=== PATIENT | female | born 1955 | race Caucasian/White ===

== ENCOUNTER 2023-05-05 15:35 | Inpatient (IN) | payer MEDICARE ==
[2023-05-05 18:09] VITALS: BMI 33.6
[2023-05-05 18:23] LABS: #Basophils 0.1 thou/uL (0.0-0.2); #Eosinphils 0.4 thou/uL (0.0-0.7); #Monocytes 0.7 thou/uL (0.11-0.59); #Neutrophils 5.9 thou/uL (1.40-6.50); %Basophils 0.6 % (0.0-1.0); %Eosinophils 4.3 % (0.0-10.0); %Lymphocytes 26.6 % (21.0-51.0); %Monocytes 6.9 % (0.0-10.0); %Neutrophils 61.3 % (42.0-75.0); Hematocrit 31.5 % (36.0-47.0); Hemoglobin 10.1 g/dL (12.0-16.0); Mean Corpuscular HGB CONC 32.1 g/dL (32.0-36.0); Mean Corpuscular Hemoglobin 29.9 pg (27.0-31.0); Mean Corpuscular Volume 93.2 fl (78.0-98.0); Platelet Count 223 10x3/uL (130-400); RBC Distribution Width 13.8 % (11.5-14.5); Red Blood Cell (RBC) Count 3.38 mill/uL (4.20-5.40); White Blood Cell (WBC) Count 9.7 10x3/uL (4.8-10.8)
[2023-05-05] MEDS ORDERED: Milk Of Magnesia 30 ML UDCUP PO PRN (18:31)
[2023-05-05] MEDS ORDERED: Bisacodyl 10 MG SUPP PR PRN (18:31)
[2023-05-05] MEDS ORDERED: Promethazine HCl 12.5 MG in Sodium Chloride 0.9% 50 ML IVPB PRN (18:33)
[2023-05-05] MEDS ORDERED: Ondansetron PF 4 MG/2 ML Vial IVP PRN ×2 (18:33→18:55)
[2023-05-05] MEDS ORDERED: diphenhydrAMINE 50 MG/ML VIAL IVP PRN (18:35)
[2023-05-05] MEDS ORDERED: diphenhydrAMINE 25 MG CAP PO PRN (18:35)
[2023-05-05] MEDS ORDERED: Zolpidem Tartrate 5 MG TAB PO PRN ×2 (18:36→18:56)
[2023-05-05] MEDS ORDERED: Benzocaine/Menthol 1 LOZ LOZ PO PRN (18:36)
[2023-05-05] MEDS ORDERED: Acetaminophen 650 MG Suppository PR PRN (18:42)
[2023-05-05 18:49] LABS: Bilirubin, Total 1.4 mg/dL (0.2-1.2); Troponin I 0.098 ng/mL (< 0.028)
[2023-05-05 18:52] LABS: ALT (SGPT) 10 U/L (8-55); AST (SGOT) 23 U/L (5-34); Albumin 3.5 g/dL (3.4-4.8); Alkaline Phosphatase 79 U/L (40-110); Anion Gap 12 mmol/L (10-20); BUN (Urea Nitrogen) 21 mg/dL (9.8-20.1); Calc. Creatinine Clearance 63 mL/min (70-130); Calcium 8.4 mg/dL (7.8-10.44); Carbon Dioxide 25 mmol/L (23-31); Chloride 104 mmol/L (98-107); Estimated GFR 50; Globulin 2.2 g/dL (2.4-3.5); Glucose 111 mg/dL (80-115); Potassium 3.9 mmol/L (3.5-5.1); Protein, Total 5.7 g/dL (5.8-8.1); Sodium 137 mmol/L (136-145)
[2023-05-05] MEDS ORDERED: Docusate 100 MG CAP PO PRN (18:55)
[2023-05-05] MEDS ORDERED: Nitroglycerin 0.4 MG TAB (25 Tab Bottle) SL PRN (18:58)
[2023-05-05] MEDS: HYDROcodone/Acetaminophen 10/325 mg Tablet PO PRN (20:33)
[2023-05-05] MEDS: Famotidine 20 MG TAB PO SCH (20:33)
[2023-05-05] MEDS: Ferrous Sulfate 325 MG TAB PO SCH (20:33)
[2023-05-05] MEDS ORDERED: Ascorbic Acid 500 mg Chewable Tablet PO SCH (21:00)
[2023-05-05] MEDS ORDERED: Docusate 100 MG CAP PO SCH (21:00)
[2023-05-05] MEDS ORDERED: Famotidine/PF 20 mg/2ml Vial SLOW IVP SCH (21:00)
[2023-05-05] MEDS ORDERED: Metamucil PACK PO SCH (21:00)
[2023-05-05] MEDS ORDERED: Ferrous Sulfate 325 MG TAB PO SCH (21:00)
[2023-05-05] MEDS ORDERED: Famotidine 20 MG TAB PO SCH (21:00)
[2023-05-06 02:36] LABS: #Basophils 0.1 thou/uL (0.0-0.2); #Eosinphils 0.5 thou/uL (0.0-0.7); #Monocytes 0.6 thou/uL (0.11-0.59); #Neutrophils 4.9 thou/uL (1.40-6.50); %Basophils 0.7 % (0.0-1.0); %Eosinophils 6.1 % (0.0-10.0); %Lymphocytes 27.5 % (21.0-51.0); %Monocytes 7.4 % (0.0-10.0); %Neutrophils 57.9 % (42.0-75.0); Hemoglobin 9.7 g/dL (12.0-16.0); Mean Corpuscular HGB CONC 31.3 g/dL (32.0-36.0); Mean Corpuscular Hemoglobin 29.7 pg (27.0-31.0); Mean Corpuscular Volume 94.8 fl (78.0-98.0); Mean Platelet Volume 9.8 fL (7.4-10.4); Platelet Count 219 10x3/uL (130-400); RBC Distribution Width 13.7 % (11.5-14.5); Red Blood Cell (RBC) Count 3.27 mill/uL (4.20-5.40); White Blood Cell (WBC) Count 8.5 10x3/uL (4.8-10.8)
[2023-05-06 03:03] LABS: Troponin I 0.042 ng/mL (< 0.028)
[2023-05-06] MEDS: HYDROcodone/Acetaminophen 10/325 mg Tablet PO PRN ×4 (03:17→21:46)
[2023-05-06 03:19] LABS: ALT (SGPT) 8 U/L (8-55); AST (SGOT) 22 U/L (5-34); Albumin 3.4 g/dL (3.4-4.8); Alkaline Phosphatase 79 U/L (40-110); Anion Gap 11 mmol/L (10-20); BUN (Urea Nitrogen) 20 mg/dL (9.8-20.1); Bilirubin, Total 0.3 mg/dL (0.2-1.2); Calc. Creatinine Clearance 70 mL/min (70-130); Calcium 8.7 mg/dL (7.8-10.44); Carbon Dioxide 28 mmol/L (23-31); Chloride 104 mmol/L (98-107); Estimated GFR 57; Globulin 2.2 g/dL (2.4-3.5); Glucose 114 mg/dL (80-115); Protein, Total 5.6 g/dL (5.8-8.1); Sodium 139 mmol/L (136-145)
[2023-05-06 08:28] LABS: Troponin I 0.041 ng/mL (< 0.028)
[2023-05-06] MEDS ORDERED: ADENOSINE 60 MG/20 ML SDV ONE (08:36)
[2023-05-06] MEDS ORDERED: Multivit, Therapeutic 1 TAB PO SCH (09:00)
[2023-05-06] MEDS ORDERED: Folic Acid 1 MG TAB PO SCH (09:00)
[2023-05-06] MEDS: Ferrous Sulfate 325 MG TAB PO SCH ×2 (12:50→21:47)
[2023-05-06] MEDS: Aspirin 81 mg Enteric Coated Tablet PO SCH (12:50)
[2023-05-06] MEDS: Folic Acid 1 MG TAB PO SCH (12:50)
[2023-05-06] MEDS: Multivit, Therapeutic 1 TAB PO SCH (12:50)
[2023-05-06] MEDS: Famotidine 20 MG TAB PO SCH ×2 (12:51→21:47)
[2023-05-06] MEDS: Gabapentin 100 MG CAP PO SCH (21:47)
[2023-05-07] MEDS: HYDROcodone/Acetaminophen 10/325 mg Tablet PO PRN ×3 (03:17→20:31)
[2023-05-07] MEDS: Multivit, Therapeutic 1 TAB PO SCH (08:46)
[2023-05-07] MEDS: DULoxetine 30 MG CAP PO SCH (08:46)
[2023-05-07] MEDS: Ferrous Sulfate 325 MG TAB PO SCH ×2 (08:46→20:30)
[2023-05-07] MEDS: Aspirin 81 mg Enteric Coated Tablet PO SCH (08:46)
[2023-05-07] MEDS: Folic Acid 1 MG TAB PO SCH (08:46)
[2023-05-07] MEDS: Gabapentin 100 MG CAP PO SCH ×3 (08:46→20:30)
[2023-05-07] MEDS: Famotidine 20 MG TAB PO SCH ×2 (08:46→20:30)
[2023-05-07 10:30] LABS: Bilirubin Negative (Negative); Blood, Urine Negative (Negative); Glucose, Urine (Dipstick) Negative (Negative); Ketone, Urine Negative (Negative); Leukocyte Negative (Negative); Nitrite Negative (Negative); Protein, Urine (Dipstick) Negative (Neg-Trace); Urobilinogen 0.2 mg/dL (Less than 2); pH, Urine 6.5 (5.0-9.0)
[2023-05-07 10:32] LABS: Clarity Clear (Clear); Specific Gravity, Urine 1.012 (1.002-1.036)
[2023-05-07 10:43] LABS: Bacteria/HPF Rare-Few HPF (None Seen); CAUTI Indications for Culture Dysuria,urgency,freq; RBC/HPF None Seen HPF (0-3); Urine Culture Reflex No No; WBC/HPF None Seen HPF (0-3)
[2023-05-08] MEDS: HYDROcodone/Acetaminophen 10/325 mg Tablet PO PRN ×2 (00:28→07:08)
[2023-05-08] MEDS ORDERED: traZODone HCl 50 MG TAB PO SCH ×2 (01:00→21:00)
[2023-05-08] MEDS: Gabapentin 100 MG CAP PO SCH (08:25)
[2023-05-08] MEDS: Folic Acid 1 MG TAB PO SCH (08:25)
[2023-05-08] MEDS: DULoxetine 30 MG CAP PO SCH (08:26)
[2023-05-08] MEDS: Multivit, Therapeutic 1 TAB PO SCH (08:26)
[2023-05-08] MEDS: Famotidine 20 MG TAB PO SCH (08:26)
[2023-05-08] MEDS: Ferrous Sulfate 325 MG TAB PO SCH (08:26)
[2023-05-08] MEDS: Aspirin 81 mg Enteric Coated Tablet PO SCH (08:26)
[2023-05-08] MEDS ORDERED: FLU VACC QS2023(65UP)/MF59C/PF 60 MCG/0.5 ML SYRINGE IM ONE (09:00)
[2023-05-08 12:03] VITALS: BP 127/60; TEMP 98.1
== END 2023-05-08 16:15 | disposition home or self-care (01) | DRG 280 ==
LOC: 2SW 17:54 → OBSVTOIN 05-06 15:41
PROVIDERS: ADMIT Family Medicine; ATTEND Family Medicine
DX: R07.89 Other chest pain (principal); G93.41 Metabolic encephalopathy; I21.A1 Myocardial infarction type 2; N17.9 Acute kidney failure, unspecified; I50.32 Chronic diastolic (congestive) heart failure; E66.9 Obesity, unspecified; M79.7 Fibromyalgia; M47.26 Other spondylosis with radiculopathy, lumbar region; R09.02 Hypoxemia; F32.A Depression, unspecified; I08.1 Rheumatic disorders of both mitral and tricuspid valves; K21.9 Gastro-esophageal reflux disease without esophagitis; G47.9 Sleep disorder, unspecified; Z96.643 Presence of artificial hip joint, bilateral; Z96.653 Presence of artificial knee joint, bilateral; Z68.33 Body mass index [BMI] 33.0-33.9, adult; Z98.890 Other specified postprocedural states; Z86.711 Personal history of pulmonary embolism; Z90.710 Acquired absence of both cervix and uterus; Z82.49 Family history of ischemic heart disease and other diseases of the circulatory system
CPT/HCPCS: 36415; 71045; 78452; 80053; 81001; 83880; 84484; 85025; 90471; 90694; 93017; 93306; 96372; A9500; G0008; G0378; G0379; J0153; J1650